=== PATIENT | male | born 1940 | race Caucasian/White ===

== ENCOUNTER → 2018-05-07 08:44 | Outpatient (CLI) | payer MEDICARE, SELFPAY ==
--- NOTE | 2018-05-07 08:47 | ECHOD_ITS ---
Reason For Study: murmur Procedure This was a 2D Doppler, Color Flow transthoracic echocardiogram. Exam performed in department. Left Ventricle Normal LV size. Mild concentric left ventricular hypertrophy. Sigmoid septum. Left ventricular systolic function is normal. The estimated ejection fraction is 65 %. Stage 1 diastolic dysfunction. No regional wall motion abnormalities noted. Right Ventricle Normal RV size. Normal systolic function. Atria Normal left atrium. Normal right atrium. Mitral Valve Normal mitral valve. Tricuspid Valve Normal tricuspid valve. Mild (1+) tricuspid valve insufficiency. Pulmonary artery systolic pressure is 34 mmHg. Aortic Valve Trisinus/trileaflet aortic valve. Moderate focal aortic valve calcification. Peak aortic valve gradient 30 mmHg. Mean aortic valve gradient 16 mmHg. Mild aortic stenosis. Calculated aortic valve area (continuity equation) is 1.6 cm2. Pulmonic Valve Normal pulmonic valve. Great Vessels Mild to moderately dilated aortic root. The pulmonary artery is normal size. Normal inferior vena cava. Pericardium/Pleural No pericardial effusion. MMode/2D Measurements & Calculations LVIDd: 4.1 cm IVSd: 1.2 cm LVOT diam: 2.0 cm LVIDs: 2.5 cm LVPWd: 1.2 cm LVOT area: 3.2 cm2 RVDd: 3.5 cm FS: 39.6 % Ao root diam: 4.1 cm LAV(MOD-bp): 61.9 ml LA A4 area: 20.9 cm2 LAV(MOD-bp) Indexed: 29.7 ml/m2 LAV(MOD-sp2): 64.9 ml LAV(MOD-sp4): 56.3 ml RA A4 area: 13.0 cm2 Doppler Measurements & Calculations MV E max valentino: 99.3 cm/sec Lat Peak E' Valentino: 8.1 cm/sec Med Peak E' Valentino: 5.9 cm/sec MV A max valentino: 124.7 cm/sec E/E' lat: 12.2 E/E' med: 16.9 MV E/A: 0.80 Ao V2 max: 278.5 cm/sec LV V1 max: 131.9 cm/sec SV(LVOT): 108.9 ml Ao max P.4 mmHg LV V1 max P.0 mmHg Ao V2 mean: 192.5 cm/sec LV V1 mean P.5 mmHg Ao mean P.9 mmHg LV V1 mean: 89.0 cm/sec Ao V2 VTI: 67.4 cm LV V1 VTI: 33.8 cm CHHAYA(I,D): 1.6 cm2 CHHAYA(V,D): 1.5 cm2 PA V2 max: 116.2 cm/sec PI dec slope: 149.1 cm/sec2 TR max valentino: 277.7 cm/sec TR max P.9 mmHg Interpretation Summary Normal LV size. Mild concentric left ventricular hypertrophy. Left ventricular systolic function is normal. The estimated ejection fraction is 65 %. Stage 1 diastolic dysfunction. Mild aortic stenosis. Calculated aortic valve area (continuity equation) is 1.6 cm2. Mean aortic valve gradient 16 mmHg. Mild to moderately dilated aortic root. Compared to prior study, there is no significant change. Ordering Physician: Florentin Tolentino Referring Physician: Brady Valdovinos Performed By: Mariah Mcleod, SHAYLEE, RVT
== END ==
PROVIDERS: Family Provider Nurse Practitioner Family; PCP Nurse Practitioner Family; Visit Provider Internal Medicine Cardiovascular Disease
DX: I35.0 Nonrheumatic aortic (valve) stenosis (principal)
CPT/HCPCS: 93306

== ENCOUNTER → 2019-07-23 14:12 | Outpatient (CLI) | payer MEDICARE, SELFPAY ==
[2019-05-07 09:00] VITALS: BMI 27.8
--- NOTE | 2019-07-23 17:55 | NEURO ---
NCS and/or EMG Patient Report HPI: Patient is 78-year-old male who presented with complaints of numbness, tingling and feeing of [id number] in the left hand which has been going on for a month or so and which started mostly at night but now is throughout the day and night. 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 Physical Exam: Syndactyly noted in both hand fingers. Mild tenderness of both wrist noted with slightly positive Tinel signs. Decreased sensation to light touch in both hand fingers noted. Findings: 1. Right median sensory nerve response from digit second and from palmar area was not recordable. 2. There is prolongation of distal latency of right median motor nerve response. 3. There is prolongation of the distal latency of the right ulnar sensory nerve response. 4. Normal right ulnar motor nerve conduction study. 5. Normal needle examination of right upper extremity except slightly decreased recruitment in the right APB and FDI muscles. Impression: 1. Findings are consistent with moderately severe median mononeuropathy at wrist due to carpal tunnel syndrome. 2. 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 Recommendation: 1. Patient recommended to wear right hand and elbow splints as much as possible. 2. Patient recommended to avoid repetitive use of right hand as well as heavy lifting from right hand. 3. Patient recommended to see hand surgeon for possible surgical release of right carpal tunnel syndrome if symptoms continues
== END ==
PROVIDERS: Family Provider Nurse Practitioner Family; PCP Nurse Practitioner Family; Referring Provider Specialist; Visit Provider Specialist
DX: R20.2 Paresthesia of skin (principal)
CPT/HCPCS: 95886; 95909

== ENCOUNTER → 2020-06-13 07:12 | Outpatient (CLI) | payer MEDICARE, SELFPAY ==
[2020-05-12 10:31] VITALS: BMI 27.0
--- NOTE | 2020-06-13 07:13 | ECHOD_ITS ---
Reason For Study: CP Procedure This was a 2D Doppler, Color Flow transthoracic echocardiogram. Exam performed in department. Left Ventricle Normal LV size. Moderate eccentric left ventricular hypertrophy. Left ventricular systolic function is normal. The estimated ejection fraction is 60 %. Stage 1 diastolic dysfunction. No regional wall motion abnormalities noted. Right Ventricle Normal RV size. Normal systolic function. Atria The left atrium is mildly enlarged. Normal right atrium. Mitral Valve Normal mitral valve. Tricuspid Valve Normal tricuspid valve. Aortic Valve Trisinus/trileaflet aortic valve. Moderate focal aortic valve calcification. Peak aortic valve gradient 36 mmHg. Mean aortic valve gradient 12 mmHg. Calculated aortic valve area (continuity equation) is 1.3 cm2. Pericardium/Pleural No pericardial effusion. MMode/2D Measurements & Calculations LVIDd: 3.6 cm IVSd: 1.8 cm LVOT diam: 2.0 cm LVIDs: 1.7 cm LVPWd: 1.3 cm LVOT area: 3.1 cm2 RVDd: 3.5 cm FS: 53.5 % Ao root diam: 4.2 cm LAV(MOD-bp): 59.9 ml LA dimension: 4.5 cm LA A4 area: 20.0 cm2 LAV(MOD-bp) Indexed: 30.1 ml/m2 LAV(MOD-sp2): 60.6 ml LAV(MOD-sp4): 56.1 ml RA A4 area: 13.3 cm2 Time Measurements MV dec time: 0.30 sec Doppler Measurements & Calculations MV E max valentino: 108.1 cm/sec Lat Peak E' Valentino: 8.2 cm/sec Med Peak E' Valentino: 4.8 cm/sec MV A max valentino: 138.3 cm/sec E/E' lat: 13.2 E/E' med: 22.6 MV E/A: 0.78 MV V2 max: 162.8 cm/sec MV P1/2t max valentino: 100.2 cm/sec Ao V2 max: 302.4 cm/sec MV max P.6 mmHg MV P1/2t: 109.9 msec Ao max P.6 mmHg MV V2 mean: 79.2 cm/sec Ao V2 mean: 151.8 cm/sec MV mean P.0 mmHg MV dec slope: 266.9 cm/sec2 Ao mean P.2 mmHg MV V2 VTI: 44.9 cm MVA(P1/2t): 2.0 cm2 Ao V2 VTI: 68.2 cm MVA(VTI): 2.0 cm2 CHHAYA(I,D): 1.3 cm2 CHHAYA(V,D): 1.3 cm2 LV V1 max: 123.8 cm/sec SV(LVOT): 88.5 ml PA V2 max: 119.4 cm/sec LV V1 max P.1 mmHg LV V1 mean P.4 mmHg LV V1 mean: 86.6 cm/sec LV V1 VTI: 28.6 cm Interpretation Summary Normal LV size. Moderate eccentric left ventricular hypertrophy. Left ventricular systolic function is normal. The estimated ejection fraction is 60 %. Stage 1 diastolic dysfunction. Mean aortic valve gradient 12 mmHg. Calculated aortic valve area (continuity equation) is 1.3 cm2. Ordering Physician: Florentin Tolentino Referring Physician: Brady Valdovinos Performed By: Quinten Sen RCS
--- NOTE | 2020-06-13 16:30 | STRESSREP ---
Stress Test Report Exercise myocardial perfusion stress test. 78-year-old man with a history of aortic stenosis and chest discomfort. Stress protocol: Resting EKG demonstrates sinus bradycardia with a rate of 54 bpm normal intervals are noted resting blood pressure is 140/80 mmHg. The patient exercised according to the regular Steve protocol for a total duration of 4 minutes. Patient completed 1 minute into stage II of the Steve protocol. The maximum heart rate attained was 125 bpm which was 89% of max impacted heart rate the maximum workload was 5.7 metabolic equivalents. At rest there were no ST or T wave changes noted suggest ischemia at peak exercise upsloping ST changes were noted with [address] changes noted in lead II. No clinical angina was noted the test was terminated due to the target heart rate being achieved as well as dyspnea. The peak blood pressure was 140/80 mmHg. Myocardial perfusion protocol. 10.0 mCi of technetium 99m sestamibi was injected at rest. The patient exercised for 4 minutes and at peak exercise 36.0 mCi of technetium 99m sestamibi was injected stress images were obtained stress and rest images were reconstructed and compared in the short axis vertical long horizontal long axis. Gated images were also obtained P Perfusion SPECT analysis: Review of the images demonstrate normal uptake of tracer noted in all areas of the myocardium the resting images similarly demonstrate normal uptake of tracer noted in all areas of the myocardium. No reversibility is noted suggest ischemia. Gated SPECT analysis: The gated ejection fraction was 72%. Conclusion: Normal exercise myocardial perfusion stress test at a low to moderate workload. Preserved ejection fraction.
== END ==
PROVIDERS: PCP Nurse Practitioner Family; Referring Provider Internal Medicine Cardiovascular Disease; Visit Provider Internal Medicine Cardiovascular Disease
DX: R07.9 Chest pain, unspecified (principal)
CPT/HCPCS: 78452; 93017; 93306; A9500; A4216

== ENCOUNTER 2020-10-20 22:32 | Outpatient (RCR) | payer MEDICARE, SELFPAY ==
[2020-05-12 10:31] VITALS: BMI 27.0
[2020-10-20] MEDS: COVID-19 VACC, MRNA(PFIZER)/PF 30 MCG/0.3 ML SYRINGE IM (17:35)
[2020-11-10] MEDS: COVID-19 VACC, MRNA(PFIZER)/PF 30 MCG/0.3 ML SYRINGE IM (16:55)
== END 2020-10-20 23:59 ==
LOC: IMMUN 22:32
PROVIDERS: PCP Nurse Practitioner Family; Referring Provider Family Medicine; Visit Provider Family Medicine
DX: Z23 Encounter for immunization (principal)
CPT/HCPCS: 0001A; 0002A; 91300; 91301

== ENCOUNTER → 2022-01-09 | Outpatient (CLI) | payer MEDICARE, SELFPAY ==
--- NOTE | 2022-01-09 09:51 | ECHOD_ITS ---
Reason For Study: MURMUR Procedure This was a 2D Doppler, Color Flow transthoracic echocardiogram. Exam performed in department. Left Ventricle Normal LV size. Left ventricular systolic function is normal. The estimated ejection fraction is 65 %. Stage 1 diastolic dysfunction. No regional wall motion abnormalities noted. Right Ventricle Normal RV size. Normal systolic function. Atria The left atrium is mildly enlarged. Normal right atrium. Mitral Valve There is moderate to severe mitral annular calcification. Mild (1+) eccentric mitral valve insufficiency. Tricuspid Valve Normal tricuspid valve. Aortic Valve Trisinus/trileaflet aortic valve. Mild focal aortic valve calcification. Aortic sclerosis, no stenosis. Peak aortic valve gradient 14 mmHg. Mean aortic valve gradient 7 mmHg. Pulmonic Valve Normal pulmonic valve. Great Vessels Normal aortic root. The pulmonary artery is normal size. Normal inferior vena cava. Pericardium/Pleural No pericardial effusion. MMode/2D Measurements & Calculations LVIDd: 4.0 cm IVSd: 1.2 cm LVOT diam: 2.2 cm LVIDs: 1.2 cm LVPWd: 1.1 cm LVOT area: 3.8 cm2 FS: 69.8 % Ao root diam: 3.9 cm LAV(MOD-sp2): 102.0 ml LVAd ap4: 25.1 cm2 LVLd ap4: 7.2 cm EDV(MOD-sp4): 74.4 ml EDV(sp4-el): 75.7 ml LVAs ap4: 12.7 cm2 LVLs ap4: 5.8 cm ESV(MOD-sp4): 24.4 ml ESV(sp4-el): 23.6 ml EF(MOD-sp4): 67.3 % EF(sp4-el): 68.9 % SV(MOD-sp4): 50.1 ml SV(sp4-el): 52.1 ml LA A4 area: 26.2 cm2 LA dimension(2D): 4.6 cm RA A4 area: 14.8 cm2 Doppler Measurements & Calculations MV E max valentino: 104.1 cm/sec Lat Peak E' Valentino: 5.3 cm/sec Med Peak E' Valentino: 4.8 cm/sec MV A max valentino: 151.5 cm/sec E/E' lat: 19.7 E/E' med: 21.8 MV E/A: 0.69 MV V2 max: 150.2 cm/sec MV P1/2t max valentino: 128.1 cm/sec Ao V2 max: 178.0 cm/sec MV max P.0 mmHg MV P1/2t: 100.4 msec Ao max P.6 mmHg MV V2 mean: 81.7 cm/sec Ao V2 mean: 126.9 cm/sec MV mean P.3 mmHg MV dec slope: 373.7 cm/sec2 Ao mean P.6 mmHg MV V2 VTI: 47.7 cm MVA(P1/2t): 2.2 cm2 Ao V2 VTI: 47.1 cm MVA(VTI): 2.6 cm2 CHHAYA(I,D): 2.6 cm2 CHHAYA(V,D): 2.5 cm2 LV V1 max: 117.7 cm/sec SV(LVOT): 123.8 ml PA V2 max: 117.5 cm/sec LV V1 max P.5 mmHg LV V1 mean P.2 mmHg LV V1 mean: 85.5 cm/sec LV V1 VTI: 32.7 cm ECHO/Echo Complete Interpretation Summary Normal LV size. Left ventricular systolic function is normal. The estimated ejection fraction is 65 %. Stage 1 diastolic dysfunction. The left atrium is mildly enlarged. Aortic sclerosis, no stenosis. Ordering Physician: Florentin Tolentino Performed By: Tammy Zepeda RCS
== END | disposition home or self-care (01) ==
PROVIDERS: PCP Nurse Practitioner Family; Visit Provider Internal Medicine Cardiovascular Disease
DX: I35.0 Nonrheumatic aortic (valve) stenosis (principal); R01.1 Cardiac murmur, unspecified
CPT/HCPCS: 93306

== ENCOUNTER 2022-02-15 10:11 | Emergency (ER) | payer MEDICARE, SELFPAY ==
[2022-02-15 10:12] VITALS: BP 110/65; PULSE 70; RESP 18; TEMP 37; O2SAT 100; BMI 28.1
--- NOTE | 2022-02-15 10:36 | RAD_ITS ---
STUDY: X-RAY CHEST REASON FOR EXAM: Male, 81 years old. Cough TECHNIQUE: Single AP portable view of the chest. COMPARISON: None. FINDINGS: EKG electrodes are seen. The lungs are clear and expanded. There is no demonstrated pleural abnormality. Normal size heart. Normal mediastinum and layo. Normal visualized pulmonary arteries. Normal visualized aortic arch and descending thoracic aorta. There are diffuse degenerative changes of the visualized thoracic spine. Normal visualized ribs, clavicles, and shoulders. There is no demonstrated abnormality of the visualized soft tissue structures of the upper abdomen. RAD/Chest 1 View (Portable) IMPRESSION: Normal x-ray examination of the chest. Electronically Signed: Pavel Fabian MD at 11:53 EDT ,
[2022-02-15] MEDS: Ondansetron 4 MG/2 ML Vial IV (10:56)
[2022-02-15 11:06] LABS: Absolute Lymphocyte Count 0.55 X10^3/uL (0.83-4.51); Absolute Neutrophil Count 1.9 X10^3/uL (2.0-7.7); Basophil# 0.01 X10^3/uL; Basophil% 0.3 % (0-1); Eosinophil# 0.02 X10^3/uL; Eosinophils% 0.7 % (0-5); Hematocrit 36.6 % (40-54); Hemoglobin 11.1 g/dL (13.0-16.5); Lymphocyte # 0.55 X10^3/ul (0.83-4.51); Lymphocyte % 18.7 % (19-41); Mean Corp Hgb Conc 30.3 g/dL (32-36); Mean Corpuscular Hgb 23.7 pg (27.0-32.0); Mean Platelet Vol. 10.8 fl (6.2-12.0); Monocyte# 0.44 X10^3/uL; NRBC Flagged by Analyzer 0 % (0-5); Neutrophil # 1.91 X10^3/uL (2.7-7.7); POSITIVE DIFFERENTIAL YES; Platelet Count 124 K/mm3 (150-450); RBC Distribution Width CV 14.9 % (11.6-14.6); RBC Distribution Width SD 41.5 fl (35.1-43.9); Red Blood Count 4.69 M/mm3 (4.6-6.2); White Blood Count 2.9 K/mm3 (4.4-11.0)
[2022-02-15 11:07] LABS: Differential Indicated SCAN CRITERIA MET
[2022-02-15 11:17] LABS: Anion Gap 6 (5-15); BUN 19 mg/dL (7-18); BUN/Creat Ratio 20.2 RATIO (10-20); Calcium,Total 8.7 mg/dL (8.5-10.1); Chloride 101 mmol/L (98-107); Creatinine, Serum 0.94 mg/dL (0.70-1.30); EST Glomerular Filtration Rate 81 mL/min (>60); Est Glom Filt Rate - Afr Amer 99 mL/min (>60); Estimated Creatinine Clearance 55.67 ml/min; Glucose 118 mg/dL (74-106); Potassium 3.9 mmol/L (3.5-5.1); Sodium Level 137 mmol/L (136-145)
--- NOTE | 2022-02-15 12:33 | EDS_ITS ---
HPI <CANDE Brown - Last Filed: 02/15/22 12:43> History of Present Illness Chief Complaint: Weakness Narrative Narrative: 81-year-old male with history of hypertension, hyperlipidemia presents to the emergency department with 6 to 7 days of generalized cough, fatigue, muscle aches. Patient did receive COVID-19 vaccination, he received both doses as well as a booster. Patient is currently on his fourth day of levofloxacin by his PCP and is not getting any better. Patient is here for evaluation [facility] <CANDE Brown - Last Filed: 02/15/22 12:43> [facility] Medical History (Updated 02/15/22 @ 12:43 by CANDE Brown) Benign paroxysmal positional vertigo BPH (benign prostatic hyperplasia) Carpal tunnel syndrome of right wrist Dilated aortic root Erectile dysfunction Essential (primary) hypertension Glaucoma Hyperlipidemia Iron deficiency anemia Left ventricular hypertrophy Leukopenia Non-rheumatic aortic stenosis Nonrheumatic aortic sclerosis Osteoarthritis RLS (restless legs syndrome) Home Medications amlodipine 5 mg tablet 5 mg PO DAILY 04/26/18 [History Last Taken Unknown] latanoprost 0.005 % eye drops 1 drp ophthalmic (eye) QPM 04/26/18 [History Last Taken Unknown] meloxicam 15 mg tablet 15 mg PO DAILY 04/26/18 [History Last Taken Unknown] simvastatin 20 mg tablet 20 mg PO QODAY 05/12/20 [History Last Taken Unknown] gabapentin 300 mg capsule 300 mg PO QHS PRN Pain 12/19/21 [History Last Taken Unknown] Allergy/AdvReac Type Severity Reaction Status Date / Time No Known Allergies Allergy Verified 02/15/22 10:14 Family History Brother Cancer Surgical History History of transurethral resection of prostate (10/2012) Social History Smoking Status: Never smoker alcohol intake: never caffeine: Yes Type: coffee Number of servings: 3 ROS <CANDE Brown - Last Filed: 02/15/22 12:43> ROS ED ROS Narrative Constitutional: Negative for fever, chills, weight loss, weakness Eyes: Negative for vision loss, vision change, double vision ENT: Negative for any sore throat, ear pain, congestion Cardiovascular: Negative for any chest pain, tightness, palpitations Respiratory: Negative for any hemoptysis, dyspnea, dyspnea on exertion, orthopnea. Positive for cough, sputum production Gastrointestinal: Negative for any abdominal pain, nausea, vomiting, diarrhea, constipation, blood in stool, blood in vomit : Negative for any urinary frequency, dysuria, retention, blood in urine Muscle skeletal: Negative for any muscle joint pain, stiffness, arthralgias, neck pain, back pain. Positive for myalgias Neurological: Negative for any headache, syncope, numbness or tingling, dizziness Skin: Negative for any rashes, lumps, itching, abrasions, lacerations Psychiatric: Negative for any depression, anxiety, stress, suicidal ideation, homicidal ideation Hematologic: Negative for any easy bruising, excessive bruising, easy bleeding Allergies: Negative for any eczema, hives, rash EXAM <CANDE Brown - Last Filed: 02/15/22 12:43> Physical Exam Narrative Exam Narrative: Vital signs reviewed. HEET: Head normocephalic atraumatic, TMs clear bilaterally. Posterior pharynx is clear, moist mucous membranes. Nares clear bilaterally. Neck: Supple with no lymphadenopathy or tenderness. No signs of meningismus, negative jolt sign. Cardiac: Regular rate and rhythm positive for systolic murmur, no gallops or rubs, equal peripheral pulses bilaterally. Respiratory: Lungs clear to auscultation bilaterally. No chest tenderness. Abdomen: Soft, nontender, nondistended. No abdominal bruit or pulsatile masses. No hepatosplenomegaly Extremities: No peripheral edema, no signs of gross trauma or deformity. Active full range of motion of all extremities. Neuro: Cranial nerves II through XII intact, no focal neurological deficits. Skin: Clean dry and intact with no rash, purpura, petechiae, vesicles or pustules. Backs/flank: No CVA tenderness, no midline spinal tenderness, no deformity. Psych: Normal mood and affect. No SI, HI or acute psychosis. Const Vital Signs: 02/15/22 10:12 02/15/22 10:57 Temperature 98.6 F Temperature Source Temporal Pulse Rate 70 Respiratory Rate 18 Respiratory Effort Short of Breath Blood Pressure 110/65 Blood Pressure Mean 80 Pulse Ox 100 Oxygen Delivery Method Room Air Positive well nourished and well developed General Appearance ED: well developed <Dr. Franky Sheppard MD - Last Filed: 02/15/22 12:59> Physical Exam Const Vital Signs: 02/15/22 10:12 02/15/22 10:57 Temperature 98.6 F Temperature Source Temporal Pulse Rate 70 Respiratory Rate 18 Respiratory Effort Short of Breath Blood Pressure 110/65 Blood Pressure Mean 80 Pulse Ox 100 Oxygen Delivery Method Room Air MDM <CANDE Brown - Last Filed: 02/15/22 12:43> MDM Lab Data Attestation: I reviewed the patient's lab results. Labs: Laboratory Results - last 24 hr 02/15/22 02/15/22 10:50 10:50 WBC 2.9 L RBC 4.69 Hgb 11.1 L Hct 36.6 L MCV 78.0 L MCH 23.7 L MCHC 30.3 L RDW Std Deviation 41.5 RDW Coeff of Linda 14.9 H Plt Count 124 L MPV 10.8 Immature Gran % (Auto) 0.300 Neut % (Auto) 65.0 Lymph % (Auto) 18.7 L [place] % (Auto) 15.0 H Eos % (Auto) 0.7 Baso % (Auto) 0.3 Absolute Neuts (auto) 1.9 L Absolute Lymphs (auto) 0.55 L Nucleated RBC % 0 Differential Comment COMMENT Diff Path Review May foll Sodium 137 Potassium 3.9 Chloride 101 Carbon Dioxide 30.0 Anion Gap 6 BUN 19 H Creatinine 0.94 Estim Creat Clear Calc 55.67 Est GFR (MDRD) Af Amer 99 Est GFR (MDRD) Non-Af 81 BUN/Creatinine Ratio 20.2 H Glucose 118 H Calcium 8.7 Radiography Diagnostic Testing: Clinical Impression(s) from Imaging Studies Chest X-Ray 02/15/22 10:36 IMPRESSION: Normal x-ray examination of the chest. Electronically Signed: Pavel Fabian MD at 11:53 EDT , Treatment and Re-Evaluation Narrative: Patient appears well, patient appears nontoxic, vital signs are stable. Patient presents the emergency department for 6 days of cough, without improvement after antibiotics. Patient did receive basic laboratory values as well as a chest x- ray.Patient's laboratory studies show a leukopenia with a white blood count of 2.9, patient's chemistries were unremarkable. Patient was positive for COVID- 19. Physical examination is consistent with COVID-19. This is why the patient did not have any improvement after Levaquin. Patient will no longer take any Levaquin, he is out of the window for the oral treatment for COVID-19. However patient is in the window for monoclonal antibody, all proper paperwork was signed out. Patient received information regarding this treatment. Patient vital signs remained stable, his oxygen level is 100%. He will follow-up closely with his PCP. Instructed to follow-up outpatient. <Dr. Franky Sheppard MD - Last Filed: 02/15/22 12:59> MDM MDM Narrative Medical decision making narrative: Seen and evaluated independently and in conjunction with TECHNOLOGY TRAINING ASSOCIATE. Agree with notes above unless documented otherwise. Patient with clear lungs, normal vital signs, feels very poorly. Consistent with COVID, his rapid is positive. Advised to discontinue the Levaquin, he does have hypertension, is a risk factor for worsening and his age at 81. Luckily he is vaccinated. No longer in the window for Paxlovid nor molnupiravir, so will refer him for monoclonal antibody infusion therapy. Lab Data Labs: Laboratory Results - last 24 hr 02/15/22 02/15/22 10:50 10:50 WBC 2.9 L RBC 4.69 Hgb 11.1 L Hct 36.6 L MCV 78.0 L MCH 23.7 L MCHC 30.3 L RDW Std Deviation 41.5 RDW Coeff of Linda 14.9 H Plt Count 124 L MPV 10.8 Immature Gran % (Auto) 0.300 Neut % (Auto) 65.0 Lymph % (Auto) 18.7 L [place] % (Auto) 15.0 H Eos % (Auto) 0.7 Baso % (Auto) 0.3 Absolute Neuts (auto) 1.9 L Absolute Lymphs (auto) 0.55 L Nucleated RBC % 0 Differential Comment COMMENT Diff Path Review May foll Sodium 137 Potassium 3.9 Chloride 101 Carbon Dioxide 30.0 Anion Gap 6 BUN 19 H Creatinine 0.94 Estim Creat Clear Calc 55.67 Est GFR (MDRD) Af Amer 99 Est GFR (MDRD) Non-Af 81 BUN/Creatinine Ratio 20.2 H Glucose 118 H Calcium 8.7 Radiography Diagnostic Testing: Clinical Impression(s) from Imaging Studies Chest X-Ray 02/15/22 10:36 IMPRESSION: Normal x-ray examination of the chest. Electronically Signed: Pavel Fabian MD at 11:53 EDT , Discharge Plan Triage Chief Complaint: Weakness ED Midlevel Provider: Beck Nevarez ED Provider: Franky Sheppard Dx/Rx/DC Orders Clinical Impression: COVID-19 Instructions: Coronavirus Disease 2019 (COVID-19): Caring for Yourself or Others Prescriptions: No Action latanoprost 0.005 % drops 1 drp OPHTHALMIC QPM meloxicam 15 mg tablet 15 mg PO DAILY amlodipine 5 mg tablet 5 mg PO DAILY simvastatin 20 mg tablet 20 mg PO QODAY gabapentin 300 mg capsule 300 mg PO QHS PRN (Reason: Pain) Label Comments: TAKE 1 CAPSULE BY MOUTH AT BEDTIME EVERY DAY FOR 30 DAYS Other Ambulatory Orders: COVID Outpatient Monoclonal Antibody Referral (Routine) Timeframe: 1 Day Facility: [facility] - Location: [facility] Ordered By: Dr. Franky Sheppard Primary Care Provider: Brady Valdovinos TECHNOLOGY TRAINING ASSOCIATE Referrals: Brady Valdovinos TECHNOLOGY TRAINING ASSOCIATE, TECHNOLOGY TRAINING ASSOCIATE-C [Primary Care Provider] - Activity Restrictions/Additional Instructions: You are diagnosed with COVID-19. However your vital signs are stable, your blood oxygen level is 100%. You will stop your Levaquin, you are signed up for monoclonal antibody treatment, please follow-up with the education given to by nursing staff. Please return here for any worsening shortness of breath fever chills nausea vomiting. Print Language: Yemeni Disposition Disposition: Home, Self Care
[2022-02-15 13:11] VITALS: BP 140/63; PULSE 78; RESP 18; O2SAT 100
[2022-02-16 12:54] LABS: Pathologist Review Reviewed
== END 2022-02-15 13:12 | disposition home or self-care (01) ==
PROVIDERS: Nurse Practitioner; Emergency Provider Emergency Medicine; PCP Nurse Practitioner Family; Visit Provider Emergency Medicine
DX: U07.1 COVID-19 (principal); I10 Essential (primary) hypertension; E78.5 Hyperlipidemia, unspecified; R53.1 Weakness; N40.0 Benign prostatic hyperplasia without lower urinary tract symptoms; Z79.1 Long term (current) use of non-steroidal anti-inflammatories (NSAID); Z79.899 Other long term (current) drug therapy
CPT/HCPCS: 71045; 80048; 85025; 87428; 96374; 99283; M0222; Q0222; A4216; J2405

== ENCOUNTER 2022-02-15 14:06 | Outpatient (CLI) | payer MEDICARE, SELFPAY ==
[2022-02-15 14:25] VITALS: BP 133/80; PULSE 64; RESP 16; TEMP 36.4; O2SAT 100; BMI 26.6
[2022-02-15] MEDS: 0.9% Saline Lock 10 ML Syringe IV ×3 (14:31→15:00)
[2022-02-15] MEDS: BEBTELOVIMAB 175 MG/2 ML VIAL IV (14:58)
[2022-02-15 15:28] VITALS: BP 125/61; PULSE 66; RESP 16; TEMP 36.9; O2SAT 99
[2022-02-15 15:58] VITALS: BP 121/68; PULSE 72; RESP 18; TEMP 36.7; O2SAT 98
== END 2022-02-15 15:58 | disposition home or self-care (01) ==
LOC: MS3OUT 14:07 → MS2 14:08
PROVIDERS: PCP Nurse Practitioner Family; Visit Provider Nurse Practitioner Adult Health
DX: U07.1 COVID-19 (principal)
CPT/HCPCS: M0222; Q0222; A4216

== ENCOUNTER → 2023-04-18 | Outpatient (CLI) | payer MEDICARE, SELFPAY | END | disposition home or self-care (01) | LOC: LABSPEC 16:55 | PROVIDERS: PCP Nurse Practitioner Family; Referring Provider Urology; Visit Provider Urology | DX: D30.3 Benign neoplasm of bladder (principal) | CPT/HCPCS: 87086 ==

== ENCOUNTER → 2024-03-23 | Outpatient (CLI) | payer MEDICARE, SELFPAY ==
--- NOTE | 2024-03-23 12:50 | ECHOD_ITS ---
Reason For Study: AV DISORDER Procedure This was a 2D Doppler, Color Flow transthoracic echocardiogram. Exam performed in department. Left Ventricle Normal LV size. Mild concentric left ventricular hypertrophy. Left ventricular systolic function is normal. The left ventricular ejection fraction is 65 %. Stage 1 diastolic dysfunction. No regional wall motion abnormalities noted. Right Ventricle Normal RV size. Normal systolic function. Atria Normal left atrium. Normal right atrium. Mitral Valve There is mild mitral annular calcification. Tricuspid Valve Normal tricuspid valve. Mild tricuspid valve insufficiency. Pulmonary artery systolic pressure is 22 mmHg. Aortic Valve Trisinus/trileaflet aortic valve. Moderate focal aortic valve calcification. Peak aortic valve gradient 41 mmHg. Mean aortic valve gradient 26 mmHg. Moderate aortic stenosis. Pulmonic Valve Normal pulmonic valve. Great Vessels Calcified aortic root. The pulmonary artery is normal size. Normal inferior vena cava. Pericardium/Pleural No pericardial effusion. MMode/2D Measurements & Calculations LVIDd: 3.5 cm IVSd: 1.3 cm LVOT diam: 2.0 cm LVIDs: 2.0 cm LVPWd: 1.2 cm LVOT area: 3.1 cm2 RVDd: 3.5 cm FS: 42.9 % Ao root diam: 3.6 cm LAV(MOD-bp): 65.7 ml LVAd ap4: 25.9 cm2 LAV(MOD-bp) Indexed: 33.2 ml/m2 LVLd ap4: 8.0 cm LAV(MOD-sp2): 68.8 ml EDV(MOD-sp4): 68.0 ml LAV(MOD-sp4): 61.9 ml EDV(sp4-el): 70.6 ml LVAs ap4: 12.2 cm2 LVLs ap4: 6.3 cm ESV(MOD-sp4): 20.3 ml ESV(sp4-el): 20.2 ml EF(MOD-sp4): 70.2 % EF(sp4-el): 71.4 % SV(MOD-sp4): 47.7 ml SV(sp4-el): 50.5 ml Aortic Valve Planimetry: 1.1 cm2 LA A4 area: 21.3 cm2 LA dimension(2D): 4.0 cm RA A4 area: 13.1 cm2 TAPSE: 2.1 cm Time Measurements MV dec time: 0.33 sec Doppler Measurements & Calculations MV E max valentino: 98.7 cm/sec Lat Peak E' Valentino: 5.8 cm/sec Med Peak E' Valentino: 6.3 cm/sec MV A max valentino: 140.8 cm/sec E/E' lat: 17.1 E/E' med: 15.7 MV E/A: 0.70 MV V2 max: 139.0 cm/sec MV P1/2t max valentino: 95.4 cm/sec Ao V2 max: 321.2 cm/sec MV max P.7 mmHg MV P1/2t: 110.7 msec Ao max P.3 mmHg MV V2 mean: 69.3 cm/sec Ao V2 mean: 241.4 cm/sec MV mean P.4 mmHg MV dec slope: 252.4 cm/sec2 Ao mean P.6 mmHg MV V2 VTI: 45.4 cm MVA(P1/2t): 2.0 cm2 Ao V2 VTI: 78.2 cm AV (velocity ratio): 0.36 MVA(VTI): 1.9 cm2 CHHAYA(I,D): 1.1 cm2 CHHAYA(V,D): 1.0 cm2 LV V1 max: 110.2 cm/sec SV(LVOT): 85.1 ml PA V2 max: 104.0 cm/sec LV V1 max P.9 mmHg LV V1 mean P.6 mmHg LV V1 mean: 74.9 cm/sec LV V1 VTI: 27.9 cm TR max valentino: 213.3 cm/sec TR max P.2 mmHg ECHO/Echo Complete Interpretation Summary Normal LV size. Left ventricular systolic function is normal. The left ventricular ejection fraction is 65 %. Stage 1 diastolic dysfunction. Moderate focal aortic valve calcification. Mean aortic valve gradient 26 mmHg. Moderate aortic stenosis. Ordering Physician: Florentin Tolentino Referring Physician: SHANNON LUCERO Performed By: Kenia Brandon RDCS
== END | disposition home or self-care (01) ==
PROVIDERS: PCP Nurse Practitioner Family; Referring Provider Internal Medicine Cardiovascular Disease; Visit Provider Internal Medicine Cardiovascular Disease
DX: I35.8 Other nonrheumatic aortic valve disorders (principal)
CPT/HCPCS: 93306

== ENCOUNTER → 2025-03-29 | Outpatient (CLI) | payer MEDICARE, SELFPAY ==
--- NOTE | 2025-03-29 11:54 | ECHOD_ITS ---
Reason For Study Reason For Study: AORTIC STENOSIS Procedure This was a limited 2D transthoracic echocardiogram. The study was technically difficult. Exam performed in department. Left Ventricle Normal LV size. Moderate concentric left ventricular hypertrophy. Left ventricular systolic function is normal. The left ventricular ejection fraction is 65 %. Stage 1 diastolic dysfunction. No regional wall motion abnormalities noted. Right Ventricle Normal RV size. Normal systolic function. Atria Normal left atrium. Normal right atrium. Mitral Valve There is moderate mitral annular calcification. Tricuspid Valve Normal tricuspid valve. Mild (1+) tricuspid valve insufficiency. Pulmonary artery systolic pressure is 30 mmHg. Aortic Valve Trisinus/trileaflet aortic valve. Moderate focal aortic valve calcification. Peak aortic valve gradient 49 mmHg. Mean aortic valve gradient 34 mmHg. Mild (1+) aortic valve insufficiency. Pulmonic Valve Normal pulmonic valve. Great Vessels Mildly dilated aortic root. The pulmonary artery is normal size. Inferior vena cava collapse with respiration. Pericardium/Pleural No pericardial effusion. MMode/2D Measurements & Calculations LVIDd: 3.5 cm IVSd: 1.6 cm LVOT diam: 2.0 cm LVIDs: 2.0 cm LVPWd: 1.3 cm LVOT area: 3.3 cm2 RVDd: 4.4 cm FS: 44.5 % asc Aorta Diam: 4.1 cm LAV(MOD-bp): 47.1 ml LVAd ap4: 21.6 cm2 LAV(MOD-bp) Indexed: 23.8 ml/m2 LVLd ap4: 7.7 cm LAV(MOD-sp2): 51.1 ml EDV(MOD-sp4): 50.1 ml LAV(MOD-sp4): 43.4 ml EDV(sp4-el): 51.0 ml LVAs ap4: 12.9 cm2 LVLs ap4: 6.5 cm ESV(MOD-sp4): 20.7 ml ESV(sp4-el): 21.8 ml EF(MOD-sp4): 58.7 % EF(sp4-el): 57.2 % LVAd ap2: 25.6 cm2 SV(MOD-sp4): 29.5 ml SV(MOD-sp2): 39.7 ml LVLd ap2: 9.0 cm SI(MOD-sp4): 14.9 ml/m2 SI(MOD-sp2): 20.1 ml/m2 EDV(MOD-sp2): 59.9 ml EDV(sp2-el): 61.5 ml LVAs ap2: 13.3 cm2 LVLs ap2: 7.4 cm ESV(MOD-sp2): 20.2 ml ESV(sp2-el): 20.1 ml EF(MOD-sp2): 66.3 % SV(sp4-el): 29.2 ml Ao sinus diam: 3.[address] Junction: 3.0 cm LA dimension(2D): 3.1 cm LA A4 area: 18.6 cm2 RA A4 area: 13.9 cm2 TAPSE: 1.6 cm Time Measurements MV dec time: 0.24 sec Doppler Measurements & Calculations MV E max valentino: 106.2 cm/sec Lat Peak E' Valentino: 6.4 cm/sec Med Peak E' Valentino: 5.9 cm/sec MV A max valentino: 120.7 cm/sec E/E' lat: 16.6 E/E' med: 18.1 MV E/A: 0.88 MV dec slope: 436.0 cm/sec2 Ao V2 max: 348.8 cm/sec AI max valentino: 392.4 cm/sec Ao max P.8 mmHg AI max P.6 mmHg Ao V2 mean: 282.7 cm/sec AI dec slope: 153.7 cm/sec2 Ao mean P.5 mmHg AI P1/2t: 747.9 msec Ao V2 VTI: 92.0 cm AV (velocity ratio): 0.31 CHHAYA(I,D): 1.0 cm2 CHHAYA(V,D): 0.95 cm2 LV V1 max: 100.8 cm/sec SV(LVOT): 93.7 ml PA V2 max: 102.4 cm/sec LV V1 max P.1 mmHg LV V1 mean P.3 mmHg LV V1 mean: 70.1 cm/sec LV V1 VTI: 28.4 cm PI end-d valentino: 116.1 cm/sec TR max valentino: 256.7 cm/sec TR max P.4 mmHg ECHO/Echo Complete Interpretation Summary Normal LV size. Moderate concentric left ventricular hypertrophy. Left ventricular systolic function is normal. The left ventricular ejection fraction is 65 %. Stage 1 diastolic dysfunction. Moderate focal aortic valve calcification. Mean aortic valve gradient 34 mmHg. Mild (1+) aortic valve insufficiency. Ordering Physician: Vasiliy Mccoy Referring Physician: Vasiliy Mccoy Performed By: Breanna Muñiz RDCS
== END | disposition home or self-care (01) ==
LOC: CVS 11:54
PROVIDERS: PCP Nurse Practitioner Family; Referring Provider Nurse Practitioner Family; Visit Provider Nurse Practitioner Family
DX: I35.0 Nonrheumatic aortic (valve) stenosis (principal); I77.810 Thoracic aortic ectasia; I51.7 Cardiomegaly; I10 Essential (primary) hypertension; I35.8 Other nonrheumatic aortic valve disorders
CPT/HCPCS: 93306